=== PATIENT | female | born 1955 | race Caucasian/White ===

== ENCOUNTER → 2019-07-09 12:09 | Outpatient (CLI) | payer OTHER, SELFPAY | PROVIDERS: PCP Nurse Practitioner Family; Visit Provider Nurse Practitioner Family | DX: M85.88 Other specified disorders of bone density and structure, other site (principal); E03.9 Hypothyroidism, unspecified | CPT/HCPCS: 77080 ==

== ENCOUNTER → 2020-04-08 10:13 | Outpatient (CLI) | payer MEDICARE, SELFPAY ==
[2020-04-09 23:20] LABS: COVID19 Sendout Not Detected (Not Detect)
== END ==
PROVIDERS: PCP Nurse Practitioner Family; Visit Provider Physician Assistant
DX: Z01.812 Encounter for preprocedural laboratory examination (principal)
CPT/HCPCS: 87635

== ENCOUNTER 2020-04-11 11:55 | Day surgery (SDC) | payer MEDICARE, SELFPAY ==
--- NOTE | 2020-04-11 11:46 | P.HP_ITS ---
History of Present Illness History of Present Illness Date Patient Seen: 04/11/20 Time Patient Seen: 13:00 Chief complaint: SCREENING COLONOSCOPY Narrative: 63 Years Old Female comes in today for consideration of a screening colonoscopy. Last colonoscopy on 10/13/[address] Larson, pathology showed three sessile serrated adenomas, largest 5 mm in the cecum, splenic flexure, and distal descending colon. Patient also had internal and external hemorrhoids. Three year recall advised. Prior to that has had 3-4 lifetime colonoscopies. There have been no lower GI symptoms suggesting disease such as change in bowel habits, bleeding, abdominal pain or anemia. Patient does report a diet controlled celiac disease. There's been no family history of colon cancer or colon polyps. Overall health issues have been stable, including no major cardiac events for at least 6 weeks. Current Medications (verified): 1) Synthroid 175 Mcg Oral Tablet (Levothyroxine Sodium) .... Take one by mouth every day 2) Ventolin Hfa 108 (90 Base) Mcg/act Inhalation Aerosol Solution (Albuterol Sulfate) .... 1-2 puffs every 4 hours as needed for shortness of breath. 3) Furosemide 20 Mg Oral Tablet (Furosemide) .... Take 1 tablet by mouth once a day prn, for severe fluid retention. 4) No Doz Maximum Strength 200 Mg Oral Tablet (Caffeine) .... as needed symptoms not controlled by antiemetic 5) Zofran Odt 4 Mg Oral Tablet Disintegrating (Ondansetron) .... Take one by mouth every four hours as needed 6) Phenergan 25 Mg Rectal Suppository (Promethazine Hcl) .... One every 6 hours as needed for nausea Allergies (verified): 1) * Benzoin (Critical) Past Medical History: Hx of Hyperthyroidism//Graves, radiation therapy - several eye surgeries related to proptosis; Valvular Heart Disease-MVP- unofficial echo in [place]; Celiac disease Total Abdominal Hysterectomy w/o ovaries (09/19/1996), has ovaries Subdural hematomas due to decreased intracranial pressure due to CSF leak, source of leak not found - 2012 Foot drop , peroneal palsy right, complicaiton from blood patch being placed- resolved Pneumonia 2016 and 05/06 History of colon polyps Past Surgical History: Reviewed history from 06/21/2019 and no changes required: pneumonia; 2018 cat scratch disease; 2017 subdural hematomas x 3, nontraumatic hysterectomy 18 years ago. 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 Has 4 children: Anika-[id number], Lucian-47, Aneudy-46, Bo-34 four grand children Recent move [facility] [place] Home Medications and Allergies Home Medications Medication Instructions Recorded Confirmed Type levothyroxine [Synthroid] 200 mcg PO DAILY 04/11/20 04/11/20 History ondansetron 4 mg PO Q6H PRN 04/11/20 04/11/20 History Allergies Allergy/AdvReac Type Severity Reaction Status Date / Time benzoin AdvReac Severe Blister Verified 04/11/20 12:22 Review of Systems Review of Systems ROS: Yes All systems reviewed with the patient and are negative except as otherwise documented Exam Narrative Exam Narrative: GENERAL: Alert and oriented, appearing stated age and in no acute distress. HEENT: Head normocephalic/atraumatic. Pupils equal, round, and reactive to light and accomodation. Extraocular muscles intact. Tympanic membranes clear. Nasal mucosa moist, septum midline. Oral mucosa moist, no lesions. Neck soft and supple, no lymphadenopathy. LUNGS: Clear to ausculation bilaterally, no wheezes, rhonchi or rales. CV: Normal S1 and S2 with regular rate and rhythm, no audible murmurs, rubs or gallops. ABDOMEN: Soft, non-tender, non-distended, no organomegaly. Positive bowel sounds. EXTREMITIES: No clubbing, cyanosis, or edema. NEURO: Cranial nerves II through XII grossly intact, no focal deficits. PSYCH: Alert and oriented x 3. SKIN: No concerning lesions. Assessment & Plan Assessment & Plan narrative: 1. History of colon polyps, sessile serrated adenomas x 3 2. History of internal/external hemorrhoids 3. Screening for colon cancer Plan: Colonoscopy The nature and character of the procedure as well as anticipated results were discussed. The possibility of not completing the procedure was also discussed. Possible complications including aspiration pneumonia, bleeding, perforation and reaction to medications either for sedation or preparation and missed lesions were discussed. Questions were answered and proceeding to the colonoscopy was elected. Informed consent signed. I sincerely appreciate the referral allowing me to participate in this patient's care. Please contact me with any questions or concerns.
--- NOTE | 2020-04-11 11:53 | P.OP.ENDO_ITS ---
Operative Date/Time/Diagnoses Date of procedure: 04/11/20 Pre-op diagnosis: 1. History of colon polyps, sessile serrated adenomas x 3 2. History of internal/external hemorrhoids 3. Screening for colon cancer Post-op diagnosis: other (1. Normal colonoscopy) Procedure & Clinicians Study performed: Colonoscopy Same procedure as scheduled: Yes Indications: 1. History of colon polyps, sessile serrated adenomas x 3 2. History of internal/external hemorrhoids 3. Screening for colon cancer Surgeon: Melinda Baptiste Procedure Notes SCOAP/Timeout: 13:04 Procedure in detail: ENDOSCOPIST: Melinda Baptiste MD Sedation RN: La Hernandez RN Sedation start time: 13:05 Sedation end time: 13:32 PROCEDURE: Colonoscopy INDICATIONS: 1. History of colon polyps, sessile serrated adenomas x3 2. Internal and external hemorrhoids 3. Screening for colon cancer MEDICATION: Levsin 0.125 mg sublingual, incremental doses of Versed and fentanyl until appropriate level sedation achieved. ASA CLASS: 2 CECAL WITHDRAWAL TIME: 11 minutes COMPLICATIONS: None. EXTENT OF PROCEDURE: Cecum. QUALITY OF PREP: Good with portions of liquid stool. PROCEDURE: Prior to insertion of the colonoscope, a digital rectal examination was accompli shed with circumferential palpation of the distal rectal mucosa without significant findings being noted. The high-definition pediatric colonoscope was passed into the rectum in the usual fashion and advanced over to the cecum without difficulty. The ileocecal valve, appendiceal stoma, and medial wall all could be inspected and no abnormalities were seen. ASCENDING COLON: As the colonoscope was withdrawn, care was taken to expose and inspect the haustral folds and no abnormalities were seen. HEPATIC FLEXURE: Normal no polyps, diverticula or other abnormalities. TRANSVERSE COLON: Normal no polyps, diverticula or other abnormalities. DESCENDING COLON: Normal no polyps, diverticula or other abnormalities. SIGMOID COLON: Normal no polyps, diverticula or other abnormalities. RECTUM: Normal. J maneuver was produced. There was no significant perianal disease. The J maneuver was broken. The remainder of the rectum was inspected and there was [] no external hemorrhoid disease. The scope was withdrawn. IMPRESSION: 1. Normal colonoscopy PLAN: 1. Repeat colonoscopy in 10 years. The possibility of a missed lesion including a malignancy has been discussed with the patient previously. Potential alarm symptoms have been discussed and should be reported immediately. Specimen(s): none sent Complications: none Post-procedure Recommendations: Colonscopy in 10 years Follow up: as needed Disposition: PACU
[2020-04-11] MEDS: HYOSCYAMINE 0.125 MG TABLET PO (12:23)
[2020-04-11 12:25] VITALS: BP 139/85; PULSE 67; RESP 16; TEMP 36.6; O2SAT 100; BMI 24.7
[2020-04-11] MEDS: LACTATED RINGERS 1,000 ML 200 ML IV (12:41)
[2020-04-11 13:34] VITALS: BP 126/73; PULSE 62; RESP 19; TEMP 36.3; O2SAT 99
[2020-04-11] MEDS: MIDAZOLAM 5 MG/5 ML VIAL IV (13:35)
[2020-04-11] MEDS: fentaNYL 250 MCG/5 ML INJ IV (13:36)
[2020-04-11 13:39] VITALS: BP 113/72; PULSE 93; O2SAT 97
[2020-04-11 13:45] VITALS: BP 114/75; PULSE 63; RESP 14; TEMP 37.1; O2SAT 98
== END 2020-04-11 14:11 | disposition home or self-care (01) ==
PROVIDERS: PCP Nurse Practitioner Family; Referring Provider Obstetrics & Gynecology; Visit Provider Student in an Organized Health Care Education/Training Program
PROC: 0DJD8ZZ Inspection of Lower Intestinal Tract, Via Natural or Artificial Opening Endoscopic (ICD-10-PCS; CPT 45378; principal; 2020-04-11 13:00)
DX: Z12.11 Encounter for screening for malignant neoplasm of colon (principal); Z86.010 Personal history of colon polyps
CPT/HCPCS: G0105; J2250; J3010

== ENCOUNTER → 2020-06-11 15:46 | Outpatient (CLI) | payer MEDICARE, OTHER, SELFPAY ==
--- NOTE | 2020-06-11 | DI.RAD.S_ITS ---
PROCEDURE: XR LUMBAR SPINE 2-3V INDICATIONS: STATUS POST LUMBAR SPINAL FUSION TECHNIQUE: 3 views of the lumbar spine were acquired. COMPARISON: None. FINDINGS: Bones: 5 [id number] vertebrae are present. Posterior fusion at the L4-L5 level with hardware in expected positions. Multilevel disc degeneration, moderate at the L5-S1 level. Moderate lower lumbar spine facet joint arthropathy. Trace multilevel retrolisthesis.. No vertebral body compression fractures. No suspicious bony lesions. Soft tissues: Overlying bowel gas pattern is normal. No suspicious soft tissue calcifications. IMPRESSION: 1. Multilevel spondylosis and previous posterior fusion L4-L5. Dictated by: Damien Connell [facility] Interpreted: Jason Baum MD on 06/11/2020 at 16:38 Approved by: Jason Baum M.D. on 06/11/2020 at 17:02
== END ==
PROVIDERS: Referring Provider Nurse Practitioner Family; Visit Provider Nurse Practitioner Family
DX: M47.816 Spondylosis without myelopathy or radiculopathy, lumbar region (principal); M51.37 Other intervertebral disc degeneration, lumbosacral region; Z98.1 Arthrodesis status
CPT/HCPCS: 72100

== ENCOUNTER → 2020-07-31 15:30 | Outpatient (CLI) | payer MEDICARE, OTHER, SELFPAY ==
--- NOTE | 2020-07-31 15:35 | DI.US.S_ITS ---
PROCEDURE: US ABDOMEN COMPLETE INDICATIONS: Right lower quadrant pain TECHNIQUE: Real-time scanning was performed of the abdominal, with image documentation. COMPARISON: None. FINDINGS: Liver: Measures 17 cm in longest dimension. Normal in echogenicity. Gallbladder: Nondilated. 2 gallstones are identified. These measure 2.1 cm and 1.7 cm. Normal gallbladder wall thickness. No pericholecystic fluid. Negative sonographic Galicia's sign. Biliary ducts: Intrahepatic bile ducts are non-dilated. Extrahepatic bile duct caliber measures 2 mm. Normal is 6-7 mm or less in diameter, or 10 mm or less post-cholecystectomy. Pancreas: Visualized portions of the pancreas are sonographically normal. Spleen: Spleen is normal in size and homogeneous in echotexture. Kidneys: Kidneys are normal in size and echotexture. Right kidney measures 11 cm long; left kidney measures 11 cm long. No hydronephrosis or nephrolithiasis. No solid masses. Aorta: Visualized aorta is normal in caliber at less than 3 cm. Iliacs: Proximal common iliac arteries are normal in caliber at less than 2.5 cm. IVC: Intrahepatic inferior vena cava is patent. IMPRESSION: 1. No acute cholecystitis. Gallstones are present. 2. No hydronephrosis. Dictated by: Jonathan Hansen M.D. on 07/31/2020 at 17:16 Approved by: Jonathan Hansen M.D. on 07/31/2020 at 17:18
--- NOTE | 2020-07-31 15:35 | DI.US.S_ITS ---
PROCEDURE: US PELVIC COMPLETE INDICATIONS: Right lower quadrant pain TECHNIQUE: Real-time scanning was performed of the pelvic organs, with image documentation. Additional endovaginal scanning was necessary due to incomplete visualization of the adnexal and endometrial structures by transabdominal scanning. COMPARISON: [facility], CR, XR LUMBAR SPINE 2-3V, 06/11/2020, 15:42. [facility], US, US ABDOMEN COMPLETE, 07/31/2020, 16:14. FINDINGS: Transabdominal scanning: Limited scanning through the kidneys shows no hydronephrosis. No pathologic free abdominal or pelvic fluid. Endovaginal scanning: Uterus: Absent. Vaginal cuff is unremarkable. Ovaries: Within normal limits. Symmetric blood flow. Right ovary measures 1.2 x 0.8 x 0.6 cm. -Right ovarian calcification with posterior acoustic shadowing measuring 0.8 x 0.4 x 0.4 cm. No mass identified. No vascularity. Left ovary measures 1.4 x 0.7 x 0.6 cm. IMPRESSION: 1. No free fluid. 2. Ovaries are within normal limits. Benign right ovarian calcification. 3. Uterus is absent. Dictated by: Jonathan Hansen M.D. on 07/31/2020 at 17:11 Approved by: Jonathan Hansen M.D. on 07/31/2020 at 17:16
== END ==
PROVIDERS: PCP Internal Medicine; Referring Provider Internal Medicine; Visit Provider Internal Medicine
DX: R10.31 Right lower quadrant pain (principal); K80.20 Calculus of gallbladder without cholecystitis without obstruction; Z90.710 Acquired absence of both cervix and uterus
CPT/HCPCS: 76700; 76830; 76856

== ENCOUNTER → 2020-09-09 13:33 | Outpatient (CLI) | payer MEDICARE, OTHER, SELFPAY ==
--- NOTE | 2020-09-09 | DI.RAD.S_ITS ---
PROCEDURE: XR LUMBAR SPINE MIN 4V INDICATIONS: CSF LEAK TECHNIQUE: 5 views of the lumbar spine acquired. COMPARISON: [facility], CR, XR LUMBAR SPINE 2-3V, 06/11/2020, 15:42. FINDINGS: Bones: 5 nonrib-bearing vertebrae are present. There is posterior fusion at L4-5. Hardware is intact. Trace retrolisthesis is noted at L2 on L3, L3 on L4, L5 on S1. Severe foraminal and disc space narrowing is noted at L5-S1, moderate at L4-5. No vertebral body compression fractures. No suspicious bony lesions. Soft tissues: Overlying bowel gas pattern is normal. No suspicious soft tissue calcifications. Flexion/extension: There is normal range of motion, with preserved normal alignment. IMPRESSION: Postsurgical changes as above. No dynamic instability. Dictated by: Trupti German M.D. on 09/09/2020 at 16:47 Approved by: Trupti German M.D. on 09/09/2020 at 16:48
== END ==
PROVIDERS: PCP Internal Medicine; Referring Provider Neurological Surgery; Visit Provider Neurological Surgery
DX: G96.00 Cerebrospinal fluid leak, unspecified (principal)
CPT/HCPCS: 72110

== ENCOUNTER → 2020-12-05 10:52 | Outpatient (CLI) | payer MEDICARE, OTHER, SELFPAY ==
--- NOTE | 2020-12-05 | DI.RAD.S_ITS ---
PROCEDURE: XR LUMBAR SPINE 2-3V INDICATIONS: CSF LEAK TECHNIQUE: 3 views of the lumbar spine were acquired. COMPARISON: [facility], CR, XR LUMBAR SPINE MIN 4V, 09/09/2020, 13:45. FINDINGS: Bones: 5 [id number] vertebrae are present. There is posterior fusion at L4-5. There is trace retrolisthesis L1 on L2, L2 on L3, L3 on L4, L4 on L5 and L5 on S1. Moderate to severe disc space narrowing is present L4-5, L5-S1, most severe at L5-S1. Severe foraminal narrowing is noted at L4-5 and L5-S1. Hardware is intact without evidence of periprosthetic loosening or fracture. No vertebral body compression fractures. No suspicious bony lesions. Soft tissues: Overlying bowel gas pattern is normal. No suspicious soft tissue calcifications. IMPRESSION: Stable appearance of L4-5 fusion. Severe foraminal narrowing is present at L5-S1. Dictated by: Trupti German M.D. on 12/05/2020 at 11:13 Approved by: Trupti German M.D. on 12/05/2020 at 11:15
== END ==
PROVIDERS: PCP Internal Medicine; Referring Provider Neurological Surgery; Visit Provider Neurological Surgery
DX: G96.00 Cerebrospinal fluid leak, unspecified (principal); M48.07 Spinal stenosis, lumbosacral region
CPT/HCPCS: 72100

== ENCOUNTER → 2025-08-12 17:03 | Outpatient (CLI) | payer MEDICARE, OTHER, SELFPAY ==
--- NOTE | 2025-08-12 17:06 | DI.US.S_ITS ---
PROCEDURE: US PERIPH VENOUS LOW EXTREM RT INDICATIONS: DVT R/O TECHNIQUE: Real-time imaging, as well as color and pulse Doppler interrogation, were performed of the lower extremity deep veins from the inguinal ligament to the popliteal fossa, with documentation of the visualized calf veins. COMPARISON: None. FINDINGS: The common femoral, femoral, popliteal, and the visualized calf veins are normally compressible, and free of intraluminal thrombus. Color and pulse Doppler demonstrate normal phasic intraluminal flow. There is normal augmentation response to distal compression maneuver. IMPRESSION: No findings of lower extremity deep venous thrombosis. Dictated by: Brent Daniels M.D. on 08/12/2025 at 18:58 Approved by: Brent Daniels M.D. on 08/12/2025 at 18:58
== END ==
PROVIDERS: PCP Internal Medicine; Referring Provider Registered Nurse; Visit Provider Registered Nurse
DX: I83.91 Asymptomatic varicose veins of right lower extremity (principal); I80.9 Phlebitis and thrombophlebitis of unspecified site
CPT/HCPCS: 93971